=== PATIENT | male | born 1945 | race African-American/Black ===

== ENCOUNTER 2025-04-02 09:57 | Outpatient (AMB) | payer OTHER, MEDICARE, SELFPAY ==
--- NOTE | 2025-04-02 10:01 | A.SPINEOV_ITS ---
Vital Signs 04/02/25 10:06 Height 5 ft 6 in Weight 219 lb BMI 35.3 Intake Visit Reasons: LBP Intake Note: Mr. Cochran is here today c/o Low back pain, MRI done at [facility]. 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 This is a very nice 79-year-old diabetic gentleman presents to the office today for evaluation of a chronic low back pain which he describes as an encompassing his whole lower lumbar region. He does not report any pain going down the legs. Pain is primarily there when he is up and walking around. When he is sitting he is absolutely pain-free. He does regular exercising every night with dumbbells and seated rowing type exercises with dumbbells. This gives him absolutely no pain. He does not take any medication for the discomfort. He has never been through any dedicated conservative management for his low back. He had an lumbar MRI done showing collapsing disc at L5-S1 with degeneration amongst other changes in lumbar spine was sent today to see us for an evaluation. PMH: He is a diabetic but his tells me his A1c is well controlled history of hypertension and knee surgery Social hx: He does not smoke, drink or use any recreational drugs Medications:[] Allergies: None Physical exam: Awake alert oriented no acute distress, able to stand up on his own walk down the hallway. He does walk with a flexed posture, for which she compensates at times by standing up straight and almost hyperextending his pelvis forward. He has gross motor examination is normal, reflexes are normal. Imaging review: Lumbar MRI done at the [facility] shows that he has some mild disc degeneration at L4-5 with some mild lateral recess stenosis but that there is significant degeneration at L5-S1 with Modic endplate changes. Radiologist also reports significant atrophy of the paraspinal multifidus muscles from L3 down through L5. Impression: 79-year-old gentleman with history of chronic low back pain now for 5-6 years without radiculopathy or stenosis features, who has degenerative disc disease at L5-S1. He also has significant loss of muscle bulk in the multifidus muscles of the paraspinal region posteriorly. He walks with a slightly flexed posture but seems to compensate as he gets going by hyperextending to stay upright. The pain is only present when he walks. When he sitting he is absolutely pain-free. So far he has done no dedicated conservative treatment so I think starting with some physical therapy is certainly reasonable. That may help him to build up some more of the muscle bulk in the lumbar spine. He is very clear to me that he is not interested in any back surgery whatsoever, and certainly the degeneration of his disc at L5-S1 does not need to be operated on necessarily if the pain is not all that bad. He understands that if things get significantly worse I would be happy to see him back and we can re-evaluate him. I do not really think he is a great candidate for cortisone injections given his history of hypertension and rei betes. He could consider a Tylenol as part of his medical regimen to help with some of the pain and discomfort when he is walking. Probably not a great candidate for NSAIDs given his history of chronic kidney disease. Thank you for allowing us to care for your patient. The total time spent with this visit with this patient was 45 minutes reviewing history, physical exam, lumbar imaging review, and implementation of treatment plan or further diagnostic testing Miguel Lindsey MD,PhD [facility] Orders: Orders PT Evaluation and Treatment 04/02/25 M54.9 - Dorsalgia, unspecified Coding Level of Care Code New Pt Level 4 (42309) Diagnoses Back pain M54.9
[2025-04-02 10:06] VITALS: BMI 35.3
== END 2025-04-02 11:08 | disposition home or self-care (01) ==
PROVIDERS: PCP Internal Medicine; Referring Provider Internal Medicine; Visit Provider Physician Assistant
DX: M54.9 Dorsalgia, unspecified (principal)
CPT/HCPCS: 99204